=== PATIENT | female | born 1975 | race Caucasian/White ===

== ENCOUNTER 2022-10-17 07:29 | Day surgery (SDC) | payer BC ==
[2022-10-17] MEDS ORDERED: Propofol 200 MG/20 ML SDV IV ONE (07:30)
[2022-10-17] MEDS ORDERED: Sodium Chloride 0.9% 10 ML Syringe FLUSH PRN (07:30)
[2022-10-17] MEDS: Lactated Ringers 1,000 ML IV SCH (08:05)
== END 2022-10-17 10:00 | disposition home or self-care (01) ==
LOC: FB.SDS 07:29 → MERGE 08:45 → FB.SDS 10:00
PROVIDERS: ATTEND Surgery
DX: Z12.11 Encounter for screening for malignant neoplasm of colon (principal); K63.5 Polyp of colon; D50.0 Iron deficiency anemia secondary to blood loss (chronic); N80.00 Endometriosis of the uterus, unspecified; Z98.890 Other specified postprocedural states; Z79.899 Other long term (current) drug therapy; Z88.8 Allergy status to other drugs, medicaments and biological substances
CPT/HCPCS: 00812; 88305; J2704; J7120